=== PATIENT | male | born 1990 | race African-American/Black ===

== ENCOUNTER 2016-08-27 18:40 | Emergency (ER) | payer MEDICAID ==
[~2016-08-27] VITALS: Ht 175.3 cm; Wt 82.0 kg
[2016-08-27] MEDS ORDERED: HYDROCODONE/ACETAMINOPHEN 10/325MG TABLET PO ONE (19:30)
[2016-08-27 20:50] VITALS: BP 167/90
== END 2016-08-27 21:00 | disposition home or self-care (01) ==
LOC: ER 19:10
DX: M54.5 Low back pain (principal); I10 Essential (primary) hypertension; F12.10 Cannabis abuse, uncomplicated; R56.9 Unspecified convulsions
CPT/HCPCS: 99283; Z7610